=== PATIENT | female | born 1985 | race Caucasian/White ===

== ENCOUNTER 2017-07-01 16:40 | Observation (INO) | payer MEDICAID, OTHER ==
[~2017-07-01] VITALS: Ht 165.1 cm; Wt 54.4 kg
[2017-07-01 17:34] LABS: BASOPHILS # (AUTO) 0.02 x10^3/uL (0-0.1); BASOPHILS % (AUTO) 0 % (0-1); EOSINOPHILS # (AUTO) 0.06 x10^3/uL (0-0.4); EOSINOPHILS % (AUTO) 1 % (1-7); LYMPHOCYTES # (AUTO) 1.94 x10^3/uL (1-3.4); LYMPHOCYTES % (AUTO) 32 % (22-44); MD NO; MEAN CORPUSCULAR HEMOGLOBIN 28.3 pg (27.0-34.8); MEAN CORPUSCULAR VOLUME 85.8 fL (80-100); MEAN PLATELET VOLUME 6.6 fL (7.4-10.4); MONOCYTES # (AUTO) 0.36 x10^3/uL (0.2-0.8); MONOCYTES % (AUTO) 6 % (2-9); NEUTROPHILS # (AUTO) 3.74 x10^3/uL (1.8-6.8); NEUTROPHILS % (AUTO) 61 % (42-75); PLATELET COUNT 351 x10^3/uL (130-400); RED BLOOD COUNT 4.56 x10^6/uL (3.82-5.3); RED CELL DISTRIBUTION WIDTH 14.6 % (9.6-15.2)
[2017-07-01 17:42] LABS: ALBUMIN 3.9 g/dL (3.4-5.0); ANION GAP 7 mmol/L (5-15); CALCIUM 8.8 mg/dL (8.5-10.1); CHLORIDE 109 mmol/L (98-107); CREATININE 0.79 mg/dL (0.55-1.02)
[2017-07-01 17:47] LABS: SALICYLATE LEVEL < 1.7 mg/dL (2.8-20.0)
[2017-07-01 17:50] LABS: ACETAMINOPHEN < 2 mcg/mL (10-30)
[2017-07-01 18:30] LABS: AMPHETAMINE SCREEN, URINE Negative (Negative); BARBITURATE SCREEN, URINE Negative (Negative); BENZODIAZEPINE SCREEN, URINE Negative (Negative); CANNABINOID SCREEN, URINE Negative (Negative); COCAINE SCREEN, URINE Positive (Negative); METHADONE SCREEN, URINE Negative (Negative); OPIATE SCREEN, URINE Negative (Negative)
[2017-07-01] MEDS ORDERED: ZIPRASIDONE 20MG CAPSULE ONE (22:55)
[2017-07-01] MEDS: ZIPRASIDONE 20MG CAPSULE PO SCH (23:09)
[2017-07-02] MEDS ORDERED: ONDANSETRON ODT 4 MG PO PRN (00:30)
[2017-07-02] MEDS ORDERED: ACETAMINOPHEN 325 MG TABLET PO PRN (00:30)
[2017-07-02] MEDS: ZIPRASIDONE 20MG CAPSULE PO SCH (09:00)
[2017-07-02 17:55] VITALS: BP 105/70
[2017-07-02 18:13] VITALS: BP 100/67
[2017-07-02 20:34] VITALS: BP 99/65
[2017-07-03 07:30] VITALS: BP 107/69
[2017-07-03 19:38] VITALS: BP 105/71
[2017-07-03] MEDS ORDERED: ZIPRASIDONE 20MG CAPSULE PO PRN (21:00)
[2017-07-03] MEDS: NICOTINE 7 MG/24 HR PATCH.TD24 TD SCH (21:16)
[2017-07-03] MEDS: ACYCLOVIR OINT 5%, 15GM TP SCH (21:24)
[2017-07-04] MEDS: ACYCLOVIR OINT 5%, 15GM TP SCH ×5 (06:17→20:35)
[2017-07-04 11:47] VITALS: BP 109/83
[2017-07-04] MEDS: NICOTINE 7 MG/24 HR PATCH.TD24 TD SCH (17:44)
[2017-07-04 20:52] VITALS: BP 103/67
[2017-07-04] MEDS: DOCUSATE 100 MG CAPSULE PO PRN (22:59)
[2017-07-05] MEDS: ACYCLOVIR OINT 5%, 15GM TP SCH ×5 (07:12→20:48)
[2017-07-05 08:15] VITALS: BP 130/72
[2017-07-05] MEDS: DOCUSATE 100 MG CAPSULE PO PRN ×2 (09:31→21:15)
[2017-07-05] MEDS: NICOTINE 7 MG/24 HR PATCH.TD24 TD SCH (18:27)
[2017-07-05 20:49] VITALS: BP 106/76
[2017-07-05] MEDS ORDERED: ZIPRASIDONE 20MG CAPSULE PO ONE (21:30)
[2017-07-06] MEDS: ACYCLOVIR OINT 5%, 15GM TP SCH ×5 (06:00→21:00)
[2017-07-06 08:47] VITALS: BP 92/54
[2017-07-06] MEDS ORDERED: LURASIDONE 20 MG TABLET ONE (16:49)
[2017-07-06 19:46] VITALS: BP 112/73
[2017-07-06] MEDS: NICOTINE 7 MG/24 HR PATCH.TD24 TD SCH (21:41)
[2017-07-06] MEDS: TEMAZEPAM 15 MG CAPSULE PO PRN (21:42)
[2017-07-06] MEDS: DOCUSATE 100 MG CAPSULE PO PRN (21:42)
[2017-07-07] MEDS: ACYCLOVIR OINT 5%, 15GM TP SCH ×5 (05:49→21:00)
[2017-07-07 07:30] VITALS: BP 104/72
[2017-07-07] MEDS: NICOTINE 7 MG/24 HR PATCH.TD24 TD SCH (18:17)
[2017-07-07 19:40] VITALS: BP 109/70
[2017-07-07] MEDS: DOCUSATE 100 MG CAPSULE PO PRN (22:22)
[2017-07-07] MEDS: TEMAZEPAM 15 MG CAPSULE PO PRN (22:22)
[2017-07-08] MEDS: ACYCLOVIR OINT 5%, 15GM TP SCH ×5 (05:42→20:24)
[2017-07-08 07:30] VITALS: BP 108/75
[2017-07-08] MEDS: NICOTINE 7 MG/24 HR PATCH.TD24 TD SCH (18:16)
[2017-07-08 20:45] VITALS: BP 112/73
== END 2017-07-09 02:34 ==
LOC: ED 19:43 → EDIP 22:49 → INTOOBSV 22:49 → 3E 07-02 17:38
PROVIDERS: ADMIT Internal Medicine; ATTEND Internal Medicine
DX: R45.851 Suicidal ideations (principal); F22 Delusional disorders; F14.10 Cocaine abuse, uncomplicated; F32.9 Major depressive disorder, single episode, unspecified; F41.9 Anxiety disorder, unspecified; Z87.891 Personal history of nicotine dependence; Z91.5 Personal history of self-harm
CPT/HCPCS: 36415; 80048; 80307; 80329; 82040; 84703; 85025; 99285; G0378; G0480

== ENCOUNTER 2017-07-28 21:06 | Emergency (ER) | payer MEDICAID, OTHER ==
[~2017-07-28] VITALS: Ht 167.6 cm; Wt 56.6 kg
[2017-07-28 22:08] LABS: MICROSCOPIC NOT IND
[2017-07-28 22:16] LABS: CULTURE INDICATED? NO
[2017-07-28 23:06] LABS: CLUE CELLS NONE SEEN (NONE SEEN); WET PREP WBCS MODERATE (FEW)
[2017-07-28] MEDS ORDERED: CEFTRIAXONE 250 MG ONE (23:25)
[2017-07-28] MEDS ORDERED: FLUCONAZOLE 100 MG TABLET ONE (23:25)
[2017-07-28] MEDS ORDERED: AZITHROMYCIN 250 MG TABLET ONE (23:25)
[2017-07-28] MEDS ORDERED: LIDOCAINE-MPF 1%, 2ML ONE (23:26)
[2017-07-28] MEDS ORDERED: AZITHROMYCIN 500 MG TABLET PO ONE (23:30)
[2017-07-28] MEDS ORDERED: FLUCONAZOLE 100 MG TABLET PO ONE (23:30)
[2017-07-28] MEDS ORDERED: CEFTRIAXONE 250 MG IM ONE (23:30)
[2017-07-28 23:31] VITALS: BP 105/77
== END 2017-07-28 23:43 | disposition home or self-care (01) ==
LOC: ED 22:14
DX: N76.0 Acute vaginitis (principal); K62.89 Other specified diseases of anus and rectum; F17.200 Nicotine dependence, unspecified, uncomplicated; F32.9 Major depressive disorder, single episode, unspecified
CPT/HCPCS: 81003; 81025; 87210; 87491; 87591; 87808; 96372; 99284; J0696

== ENCOUNTER 2017-07-29 02:39 | Emergency (ER) | payer MEDICAID ==
[~2017-07-29] VITALS: Ht 167.6 cm; Wt 56.5 kg
[2017-07-29] MEDS ORDERED: ONDANSETRON ODT 4 MG ONE (03:16)
[2017-07-29] MEDS ORDERED: ONDANSETRON ODT 4 MG PO ONE (03:30)
[2017-07-29 04:17] LABS: BASOPHILS # (AUTO) 0.05 x10^3/uL (0-0.1); BASOPHILS % (AUTO) 0 % (0-1); EOSINOPHILS # (AUTO) 0.09 x10^3/uL (0-0.4); EOSINOPHILS % (AUTO) 1 % (1-7); LYMPHOCYTES # (AUTO) 1.28 x10^3/uL (1-3.4); LYMPHOCYTES % (AUTO) 8 % (22-44); MD NO; MEAN CORPUSCULAR HEMOGLOBIN 28.5 pg (27.0-34.8); MEAN CORPUSCULAR HGB CONC 33.3 g/dL (32.4-35.8); MEAN CORPUSCULAR VOLUME 85.4 fL (80-100); MEAN PLATELET VOLUME 6.2 fL (7.4-10.4); MONOCYTES % (AUTO) 5 % (2-9); NEUTROPHILS % (AUTO) 86 % (42-75); PLATELET COUNT 385 x10^3/uL (130-400); RED BLOOD COUNT 4.28 x10^6/uL (3.82-5.3); RED CELL DISTRIBUTION WIDTH 14.6 % (9.6-15.2)
[2017-07-29 04:28] LABS: ALBUMIN 3.6 g/dL (3.4-5.0); ANION GAP 4 mmol/L (5-15); CALCIUM 8.3 mg/dL (8.5-10.1); CHLORIDE 109 mmol/L (98-107)
[2017-07-29 04:32] LABS: ALANINE AMINOTRANSFERASE 23 U/L (12-78); ALKALINE PHOSPHATASE 67 U/L (45-117); BILIRUBIN,TOTAL 0.3 mg/dL (0.2-1.0); CREATININE 0.88 mg/dL (0.55-1.02); TOTAL PROTEIN 7.4 g/dL (6.4-8.2)
[2017-07-29] MEDS ORDERED: DEXAMETHASONE 4 MG TABLET ONE (05:17)
[2017-07-29 05:30] VITALS: BP 103/73
[2017-07-29] MEDS ORDERED: DEXAMETHASONE 4 MG TABLET PO ONE (05:30)
== END 2017-07-29 05:32 | disposition home or self-care (01) ==
LOC: ED 04:19
DX: R10.84 Generalized abdominal pain (principal); F17.200 Nicotine dependence, unspecified, uncomplicated
CPT/HCPCS: 36415; 80053; 83690; 85025; 99284; Q0162